=== PATIENT | male | born 1955 | race Caucasian/White ===

== ENCOUNTER → 2023-08-12 19:40 | Outpatient (REF) | payer MEDICARE, SELFPAY | LOC: MRI 3T 19:40 | PROVIDERS: ATTENDING PHYSICIAN Specialist; FAMILY PHYSICIAN Family Medicine | DX: R97.20 Elevated prostate specific antigen [PSA] (principal) | CPT/HCPCS: 72197; A9575 ==

== ENCOUNTER → 2023-08-19 06:32 | Day surgery (SDC) | payer MEDICARE, SELFPAY | LOC: GI 06:32 | PROVIDERS: ATTENDING PHYSICIAN Internal Medicine Gastroenterology; FAMILY PHYSICIAN Family Medicine | DX: Z12.11 Encounter for screening for malignant neoplasm of colon (principal); K63.5 Polyp of colon; K57.30 Diverticulosis of large intestine without perforation or abscess without bleeding; K64.8 Other hemorrhoids; Z86.010 Personal history of colon polyps | CPT/HCPCS: 45385; 88305 ==

== ENCOUNTER → 2023-08-31 08:21 | Outpatient (REF) | payer MEDICARE, SELFPAY | LOC: DHCBS MAIN 08:21 | PROVIDERS: ATTENDING PHYSICIAN Nuclear Medicine Nuclear Cardiology; FAMILY PHYSICIAN Family Medicine | DX: I25.10 Atherosclerotic heart disease of native coronary artery without angina pectoris (principal) | CPT/HCPCS: 93306 ==

== ENCOUNTER → 2023-09-19 14:48 | Outpatient (REF) | payer MEDICARE, SELFPAY | LOC: RAD 14:48 | PROVIDERS: ATTENDING PHYSICIAN Specialist; FAMILY PHYSICIAN Family Medicine | DX: C61 Malignant neoplasm of prostate (principal) | CPT/HCPCS: 74177; Q9967 ==

== ENCOUNTER 2024-02-08 06:13 | Day surgery (SDC) | payer MEDICARE, SELFPAY ==
[2024-02-02 07:46] VITALS: BMI 29.3
[2024-02-02 08:44] LABS: Urine Albumin Negative (Neg - Trace); Urine Bilirubin Negative (Negative); Urine Character Clear (Clear); Urine Color Yellow; Urine Glucose Negative (Negative); Urine Ketone Negative (Negative); Urine Leukocyte Trace (Negative); Urine Nitrite Negative (Negative); Urine Occult Blood Negative (Negative); Urine Urobilinogen 1+ (Neg - 1+)
[2024-02-02 08:51] LABS: Hematocrit 40.9 % (39.0-52.0); Hemoglobin 14.6 g/dL (13.0-18.0); Mean Corp Hgb Conc. 35.7 g/dL (33.0-37.0); Mean Corpuscular Hgb 35.5 pg (27.0-31.0); Mean Corpuscular Volume 99.5 fL (80.0-94.0); Mean Platelet Volume 11.1 fL (7.4-10.4); Platelet Count 133 10^3/uL (130-400); Red Blood Cell Count 4.11 10^6/uL (4.70-6.10); Red Cell Dist. Width 12.6 % (11.5-14.5); White Blood Cell Count 4.7 10^3/uL (4.8-10.8)
[2024-02-02 09:17] LABS: APTT 28.3 Sec (23.4-35.0); INR 1.08; PT 14.1 Sec (11.4-14.6)
[2024-02-02 09:22] LABS: Urine Mucus Many
[2024-02-02 09:24] LABS: Urine Red Blood Cell 0-2 /HPF (0-2); Urine White Cell 0-2 /HPF (0-5)
[2024-02-02 10:34] LABS: Blood Urea Nitrogen 31 mg/dl (9-20); Calcium 9.1 mg/dl (8.4-10.2); Carbon Dioxide 25 mmol/L (22-30); Chloride 106 mmol/L (98-107); Estimated Creatinine Clearance 87 ml/min; Glucose 98 mg/dl (70-99); Potassium 4.1 mmol/L (3.5-5.1); Sodium 137 mmol/L (135-145); eGFR > 60.00
--- NOTE | 2024-02-03 08:07 | VNURNOTE ---
Received info for pending surgery: prostatectomy on 02/07. Confirmed with Dr Cuellar patient will need VN post-op for lawler teaching, management. Referral placed in [facility]. Will call pt today to explain VN services.
--- NOTE | 2024-02-03 09:07 | VNURNOTE ---
Home Health Liaison spoke with patient over the phone and discussed [facility] nurse/therapy, visits, schedule and purpose. Patient is agreeable and understands that visits at home will be 1-3 x per week to assess and teach medical management. Patient is
aware that [facility] will contact him for start of care in 1-2 days after discharge from .
[facility] referral completed in [facility].
[2024-02-08] VITALS (15 sets, daily range): BP systolic 104–153; BP diastolic 56–83; BMI 29.3
[2024-02-08] MEDS: NORMOSOL-R/PLASMALYTE-A 1000 IV ×3 (06:42→22:44)
[2024-02-08] MEDS: NEOMYCIN ENEMA 1 BOTTLE RECTAL (06:42)
[2024-02-08] MEDS: TYLENOL 1000 MG PO (07:06)
[2024-02-08] MEDS: DEMEROL 12.5 MG IV ×2 (12:15→12:34)
--- NOTE | 2024-02-08 13:44 | SUR.PHASEI ---
vss, restless and agitated and times, c/o penis pain - not abd. no other pain. diaphoretic at times, washed and cool cloth. medicated with demerol for pain and shivers, with some relief - sleeps snoring.
--- NOTE | 2024-02-08 13:53 | PTCARENOTE ---
Patient received from PACU in bed; IVF infusing; Surgical site assessed with CORROSION ENGINEER, five laparoscopic sites with xeroform, telfa pad, and tegaderm; Serosanguineous drainage noted; Patient oriented to room and unit; Call nagel within reach; Patient
verbalized understanding of bedrest order until 1500; Patient on 2L NC; Indwelling urinary catheter in place draining green/blue urine; Bed in lowest position, wheels locked; Assessment ongoing
[2024-02-08] MEDS: COLACE PO ×2 (14:00)
[2024-02-08] MEDS: COLACE 100 MG PO (15:37)
[2024-02-08] MEDS: ASPIR LOW (ENTERIC COATED) 81 MG PO (15:37)
[2024-02-08] MEDS: TORADOL 15 MG IV ×2 (15:37→21:05)
[2024-02-08] MEDS: LOPRESSOR PO (15:41)
[2024-02-08] MEDS: POLYSPORIN OINTMENT 1 APPLIC TOPICAL (19:46)
[2024-02-08] MEDS: LIPITOR 40 MG PO (21:05)
[2024-02-09] MEDS: TYLENOL 650 MG PO (02:50)
[2024-02-09] MEDS: TORADOL 15 MG IV ×2 (03:03→09:44)
[2024-02-09 03:10] VITALS: BP 113/60
[2024-02-09 06:40] LABS: Hematocrit 35.5 % (39.0-52.0); Hemoglobin 12.8 g/dL (13.0-18.0); Mean Corp Hgb Conc. 36.1 g/dL (33.0-37.0); Mean Corpuscular Hgb 36.8 pg (27.0-31.0); Red Blood Cell Count 3.48 10^6/uL (4.70-6.10); Red Cell Dist. Width 12.1 % (11.5-14.5); White Blood Cell Count 6.8 10^3/uL (4.8-10.8)
[2024-02-09 07:00] VITALS: BP 145/91
[2024-02-09 07:06] LABS: Blood Urea Nitrogen 24 mg/dl (9-20); Calcium 8.4 mg/dl (8.4-10.2); Carbon Dioxide 28 mmol/L (22-30); Chloride 105 mmol/L (98-107); Estimated Creatinine Clearance 79 ml/min; Glucose 96 mg/dl (70-99); Potassium 3.7 mmol/L (3.5-5.1); Sodium 136 mmol/L (135-145); eGFR > 60.00
[2024-02-09 07:12] LABS: Mean Platelet Volume 11.3 fL (7.4-10.4); Platelet Count 98 10^3/uL (130-400)
[2024-02-09] MEDS: LOPRESSOR 12.5 MG PO (09:41)
[2024-02-09] MEDS: COLACE 100 MG PO (09:41)
[2024-02-09] MEDS: POLYSPORIN OINTMENT 1 APPLIC TOPICAL (09:41)
[2024-02-09] MEDS: ASPIR LOW (ENTERIC COATED) 81 MG PO (09:43)
--- NOTE | 2024-02-09 10:42 | CM ---
Met with patient at bedside; initial assessment and case management consult completed
signed IMM form on the chart
Pharmacy verified: [facility] @ [id number] [facility]
Patient lives in a multilevel home with a 92 yr old friend; 4 steps to enter; 12 steps between floors; bathrooms on the 1st floor; his bedroom on the 2nd floor; bath has tub w/shower; grab bar
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
DME: has a shower chair and rolling walker in the home if he needs them
NO SNF history
Friend will transport home
Plan: discharge to home today with urinary catheter in place; agreeable to home health services from [facility] for VN
[2024-02-09] MEDS: COLACE PO (11:30)
[2024-02-09 11:45] VITALS: BP 140/74
--- NOTE | 2024-02-09 13:30 | W.PN.URO.CBU ---
Today's Communication / Plan
-
discharge
Assessment / Plan
-
stable
Diagnosis
-
Date of Service: February 09, 2024
-
Patient Diagnosis:
prostate cancer s/p robotic radical prostatectomy
Subjective
-
expected pain
Objective
-
Vital Signs
Temp Pulse Resp BP Pulse Ox
99.0 F 68 16 140/74 96
02/09/24 11:45 02/09/24 11:45 02/09/24 11:45 02/09/24 11:45 02/09/24 07:00
Intake and Output
02/08/24 02/09/24 02/10/24
06:59 06:59 06:59
Intake Total 2355 / 2355
Output Total 775 / 775
Balance 1580 / 1580
Intake:
Oral fluids 605 / 605
IV fluids (Total) 550 / 550
normosol 150 / 150
IV piggybacks 1200 / 1200
Output:
Urine, Lawler 775 / 775
Laboratory Results
02/09/24 05:49
02/09/24 05:49
Physical Exam
-
General - well developed, well nourished, no acute distress
Chest - clear bilaterally
Abdomen - soft, non-tender, positive bowel sounds, no CVAT, no incisional pain or distention
Genitalia - lawler with yellow urine
Dressings - clean, dry, intact
== END 2024-02-09 12:39 | disposition home or self-care (01) ==
LOC: SDS 06:13
PROVIDERS: ATTENDING PHYSICIAN Specialist; FAMILY PHYSICIAN Family Medicine
DX: C61 Malignant neoplasm of prostate (principal)
CPT/HCPCS: 55866; 38571; 51990; 88307; 88309; 80048; 81003; 81015; 85027; 85610; 85730; 93005

== ENCOUNTER 2024-04-05 14:56 | Outpatient (RCR) | payer MEDICARE, SELFPAY | END 2024-04-05 23:59 | disposition home or self-care (01) | LOC: RPT 14:56 | PROVIDERS: ATTENDING PHYSICIAN Specialist; FAMILY PHYSICIAN Family Medicine | DX: C61 Malignant neoplasm of prostate (principal); M62.89 Other specified disorders of muscle; Z73.6 Limitation of activities due to disability | CPT/HCPCS: 97110; 97162 ==

== ENCOUNTER → 2024-04-17 13:24 | Outpatient (REF) | payer MEDICARE, SELFPAY | LOC: RAD 13:24 | PROVIDERS: ATTENDING PHYSICIAN Specialist; FAMILY PHYSICIAN Family Medicine | DX: R31.9 Hematuria, unspecified (principal) | CPT/HCPCS: 74176 ==

== ENCOUNTER 2024-05-15 15:20 | Outpatient (RCR) | payer MEDICARE, SELFPAY | END 2024-05-15 23:59 | disposition home or self-care (01) | LOC: RPT 15:20 | PROVIDERS: ATTENDING PHYSICIAN Specialist; FAMILY PHYSICIAN Family Medicine | DX: C61 Malignant neoplasm of prostate (principal); M62.89 Other specified disorders of muscle; Z73.6 Limitation of activities due to disability | CPT/HCPCS: 97110; 97112; 97140; 97530 ==

== ENCOUNTER 2024-05-22 06:18 | Outpatient (RCR) | payer MEDICARE, SELFPAY | END 2024-05-22 23:59 | disposition home or self-care (01) | LOC: RPT 06:18 | PROVIDERS: ATTENDING PHYSICIAN Specialist; FAMILY PHYSICIAN Family Medicine | DX: C61 Malignant neoplasm of prostate (principal); M62.89 Other specified disorders of muscle; Z73.6 Limitation of activities due to disability | CPT/HCPCS: 97110; 97112; 97140; 97530 ==

== ENCOUNTER 2024-10-15 06:14 | Day surgery (SDC) | payer MEDICARE, SELFPAY ==
[2024-10-08 14:10] VITALS: BMI 30.4
[2024-10-15] VITALS (11 sets, daily range): BP systolic 98–127; BP diastolic 54–81; BMI 30.4
[2024-10-15] MEDS: HEPARIN 5000 UNITS SC (06:40)
[2024-10-15] MEDS: NORMOSOL-R/PLASMALYTE-A 1000 IV (06:41)
[2024-10-15] MEDS: TYLENOL 1000 MG PO (06:41)
--- NOTE | 2024-10-15 09:16 | OR.RPT ---
Addendum entered and electronically signed by Iggy Arciniega MD 10/15/24 10:18:
The assistance of Pro NELSON was required due to the complexity of the procedure. During the procedure she assisted with retraction, resection, and closure of the wound.
Original Note:
Operative Report
Operative Report
Primary Surgeon: Demian
Assisting: Pro NELSON
Pre-op Diagnosis: Right inguinal hernia
Post-op Diagnosis: Same
Procedure Performed: Open repair right inguinal hernia (Roberto)
Anesthesia Type: MAC local
Specimen / Cultures: None
Estimated Blood Loss: 2cc
Complications: None immediate
Operative Findings: Indirect defect, no cord lipoma, bard mesh
Date of Surgery: 10/15/24
Indications: This 69M developed a symptomatic right inguinal hernia and open repair was elected due to recent history of prostatectomy.
PROCEDURE: After informed consent was obtained, the patient was brought to the operative suite and placed supine on the operating table. The patient was sedated, prepped and draped in the usual sterile manner and an adequate local anesthetic was
administered using a combination of Marcaine and lidocaine.
An oblique incision was made with a #10 blade two finger breadths above the inguinal ligament and carried down to the external oblique aponeurosis using electrocautery. This layer was incised with a #10 blade and a hemostat was used to elevate and
the aponeurosis and it was divided from superior to inferior until the external ring was opened. The ilioinguinal nerve was identified and sacrificed. The cord was identified and bluntly elevated off the pubic tubercle and isolated with a asad
drain. Cremasteric fibers were taken with electrocautery. The sac was identified and grasped with a hemostat. Cord structures were dissected off the sac bluntly and protected. The sac was dissected back to the internal ring until preperitoneal fat
was visible and then suture ligated with 2-0 vicryl. The floor was inspected and was intact. A 3' x 6' bard mesh was trimmed to size and tails were created and the inferior apex was secured to the pubic tubercle with 2-0 prolene suture. The inferior
edge of the mesh was secured the inguinal ligament with interrupted 2-0 prolene sutures. The superior edge was secured to the conjoint tendon in similar fashion. The tails were crossed over the cord and secured to each other in similar fashion,
allowing for the tip of a hemostat to pass through the reconstructed internal ring. The external oblique was then closed over the mesh with running 3-0 vicryl. Luis's fascia was closed with interrupted 3-0 vicryl. The skin was approximated with
3-0 Vicryl deep dermal interrupted sutures and 4-0 monocryl suture in a subcuticular fashion. Topical skin glue was then applied. All surgical counts were reported as correct.
The patient tolerated the procedure well and was taken to the PACU in stable condition.
[2024-10-15] MEDS: SUBLIMAZE 25 MCG IV (09:36)
== END 2024-10-15 11:20 | disposition home or self-care (01) ==
LOC: SDS 06:14
PROVIDERS: ATTENDING PHYSICIAN Surgery; FAMILY PHYSICIAN Family Medicine
DX: K40.90 Unilateral inguinal hernia, without obstruction or gangrene, not specified as recurrent (principal)
CPT/HCPCS: 49505; 36415; 93005; C1781; C1894